=== PATIENT | male | born 1970 | race Caucasian/White ===

== ENCOUNTER → 2016-11-25 | Outpatient (CLI) | payer OTHER | LOC: GMAH 16:36 | PROVIDERS: ATTEND Family Medicine | DX: E03.9 Hypothyroidism, unspecified (principal) ==

== ENCOUNTER → 2018-05-05 | Outpatient (CLI) | payer OTHER | LOC: LAB.O 12:29 | PROVIDERS: ATTEND Family Medicine | DX: R10.84 Generalized abdominal pain (principal) ==

== ENCOUNTER → 2018-05-06 | Outpatient (CLI) | payer OTHER ==
--- NOTE | 2018-05-06 14:46 | CT ---
EXAM DESCRIPTION: Abdomen/Pelvis w/wo Contrast: Computed Tomography. CLINICAL HISTORY: LEFT LOWER QUAD PAIN COMPARISON: CT abdomen and pelvis without IV contrast 05/06/2018. TECHNIQUE: Spiral-axial scans at 5.0 mm intervals through the abdomen and pelvis before and after nonionic IV contrast. Water-soluble oral contrast prior to IV injection. Coronal and sagittal 2.0 mm reconstructions, before and after IV contrast. The scans after IV contrast were performed 2 hours after noncontrast scans. No adverse reactions. Total Exam DLP 2542.49 mGy - cm. This exam was performed according to our departmental CT dose-optimization program which includes automated exposure control, adjustment of the mA and/or kV according to patient size and/or use of iterative reconstruction technique; to reduce radiation dose to as low as reasonably achievable (ALARA). FINDINGS: Terminal Ileum/Cecum: Minimal mucosal thickening of the cecum and terminal ileum which contains oral contrast. Small appendix is noted normal thickness. No surrounding fatty stranding fluid or fascial thickening. Small lymph nodes with mean diameter less than 1 cm around the cecum and terminal ileum. Colon: Oral contrast shows varying degrees of mucosal thickening but no fatty stranding or fluid. More thickening noted in the distal transverse colon, splenic flexure, descending colon and rectosigmoid. Minimal fatty stranding abutting the descending colon and distal sigmoid. Diverticula noted but no inflammation. Proximal sigmoid is less involvement. Pelvic Organs: Wall thickening of the rectum, otherwise negative. Spine and Bony Pelvis: Spondylosis L5-S1 mild canal and bilateral foraminal narrowing. Also spondylosis lower thoracic spine. Stable. Abdominal Wall/Back Soft Tissues: Right fatty inguinal hernia not containing bowel. Stable. Lung bases and pleura: Negative. Liver, Stomach, Spleen, Adrenal Glands: Minimal gastric distention. Solid organs are negative. Pancreas, Gallbladder, Ducts: Gallbladder visualized. Other organs unremarkable. 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 Upper pole and upper renal segment radiodense stone 10 mm. No hydronephrosis however or lower segment. Customary morphology of the left kidney with 2 2 mm stones in the upper collecting system. Also a 3.5 mm radiodense stone in the upper collecting system with no hydronephrosis. Bilateral ureters with no dilation or radiodense stones. Mesentery: Minimal along the splenic flexure and descending colon. No free air or free fluid. Aorta: Minimal atherosclerotic calcification distally. Small Bowel: Contains oral contrast normal caliber and no thickening anteriorly terminal ileum. No obstruction or air-fluid levels. IMPRESSION: 1. Nonspecific scattered regions of mucosal/bowel wall thickening of the colon including the cecum, transverse colon, splenic flexure, descending colon and mid and distal sigmoid and rectum. Minimal density of the mesentery abutting the descending colon. Similar thickening of the terminal ileum. Diverticula in distal descending colon and sigmoid but no diverticulitis. Mesenteric lymph nodes around the cecum and terminal ileum. Some were present on the prior study. Appendix unremarkable. Consider gastroenterology consultation and colonoscopy. 2. Bilateral radiodense kidney stones with a 10 mm stone in the upper system of the right kidney which is partially duplicated. This stone has slightly enlarged since the prior study. Almost 4 mm stone upper collecting system left kidney. This stone has slightly enlarged since the prior study. No hydronephrosis. 3. Right side fatty inguinal hernia not containing bowel stable. Electronically signed by: Jonh Terry MD 05/06/2018 2:44 PM CDT
== END ==
LOC: CT 09:24
PROVIDERS: ATTEND Family Medicine
DX: K57.90 Diverticulosis of intestine, part unspecified, without perforation or abscess without bleeding (principal); N20.0 Calculus of kidney; K40.90 Unilateral inguinal hernia, without obstruction or gangrene, not specified as recurrent; R10.32 Left lower quadrant pain

== ENCOUNTER 2018-05-20 05:36 | Day surgery (SDC) | payer OTHER ==
[2018-05-20] MEDS ORDERED: LACTATED RINGERS 1,000 ML ONE (05:49)
[2018-05-20] MEDS ORDERED: LIDOCAINE 1% 10 ML VIAL INJ ONE (10:00)
[2018-05-20] MEDS ORDERED: PROPOFOL 200 MG/20 ML VIAL IV ONE (10:00)
--- NOTE | 2018-05-20 10:10 | OP ---
DATE OF PROCEDURE: 05/20/18 PREOPERATIVE DIAGNOSIS: 1. Abnormal CT of the colon. 2. Change in bowel habits. 3. Diarrhea. 4. Weight loss. 5. Bilateral lower quadrant pain. POSTOPERATIVE DIAGNOSIS: 1. Pancolitis. PROCEDURE: 1. Colonoscopy plus biopsy. SURGEON: Alex Stroud MD. COMPLICATIONS: None apparent. BLOOD LOSS: None. MEDICATIONS: Monitored anesthesia care. DESCRIPTION OF PROCEDURE: Informed consent was obtained prior to sedation. The preprocedure cardiopulmonary assessment was satisfactory. The patient was placed in the left lateral decubitus position and was sedated. A digital rectal exam was unremarkable. The tip of the Olympus colonoscope was inserted in the rectum and guided over to the cecum. The cecum was identified by locating the ileocecal valve and appendiceal orifice. The ileocecal valve as intubated and terminal ileum was inspected. The ileum is unremarkable. There is no evidence of ulceration, inflammation or other mucosal abnormality. The colon, however, is a different story. The patient has evidence of pancolitis. The colon mucosa is characterized by injection and edema, loss of normal vasculature because of the injection. There are shallow ulcers scattered throughout the colon. Some of these are linear and serpiginous and others are more rounded. [place] biopsies from each section of the colon were obtained. Probably the rectum was the least affected portion of the colon, however, it was not spared and there was inflammation in the rectum. There were a few diverticula in the left colon. The colon was otherwise unremarkable. RECOMMENDATIONS: Await biopsies. I suspect this represents inflammatory bowel disease, likely ulcerative colitis. He will likely need treatment. I will followup with him on the biopsies next week and we will proceed with treatment accordingly. #[id number] cc: Lacho Ho MD [facility]
[2018-05-20 10:55] VITALS: BP 128/72; TEMP 97.4; O2SAT 97
== END 2018-05-20 10:35 | disposition home or self-care (01) ==
LOC: AMB 05:36
PROVIDERS: ATTEND Internal Medicine Gastroenterology
DX: K51.00 Ulcerative (chronic) pancolitis without complications (principal); R19.7 Diarrhea, unspecified; I10 Essential (primary) hypertension; E03.9 Hypothyroidism, unspecified; K21.9 Gastro-esophageal reflux disease without esophagitis; R63.4 Abnormal weight loss; Z68.32 Body mass index [BMI] 32.0-32.9, adult; Z85.850 Personal history of malignant neoplasm of thyroid; Z79.899 Other long term (current) drug therapy

== ENCOUNTER → 2019-09-29 | Outpatient (CLI) | payer BC | LOC: GMAJ 07:00 | PROVIDERS: ATTEND Family Medicine | DX: E78.5 Hyperlipidemia, unspecified (principal) ==

== ENCOUNTER 2019-11-12 05:39 | Emergency (ER) | payer BC ==
[2019-11-12] MEDS ORDERED: KETOROLAC TROMETHAMINE INJ 30 MG/ML VIAL IV ONE ×2 (05:59→06:01)
--- NOTE | 2019-11-12 06:00 | ED.PDOC ---
History of Present Illness - History of Present Illness Initial Comments: 49 yo M PMH Thyroid Disease and Kidney Stones presents to ED c/o left sided flank pain radiating to LLQ that he attributes to kidney stones that began 3 hours ago. Denies fever chills vomiting diarrhea chest pain sob admits some nausea and no diaphoresis but 'some sweating' No change in diet symptoms disturb rest no change in bowel or bladder denies drinking or smoking admits FH HTN denies FH DM has PMD Dr. Gill for follow up. No other c/o today. <Jairo Graf - Last Filed: 11/12/19 06:58> <Ab Carvajal - Last Filed: 11/12/19 08:21> - General Chief Complaint: Problem Stated Complaint: left flank pain Time Seen by Provider: 11/12/19 05:56 - History of Present Illness Allergies/Adverse Reactions: Allergies NO KNOWN ALLERGY Allergy (Verified 11/12/19 05:52) Home Medications: Ambulatory Orders Levothyroxine Sodium [Synthroid] 0.05 mg PO ACBK 05/19/18 Lisinopril 10 mg PO QAM 05/19/18 Tamsulosin HCl [Flomax] 0.4 mg PO DAILY #7 cap 11/12/19 Tramadol HCl 50 mg PO Q8HR PRN #20 tab 11/12/19 levoFLOXacin [Levaquin] 500 mg PO DAILY #10 tab 11/12/19 Review of Systems - Review of Systems Constitutional: States: see HPI EENTM: States: see HPI Respiratory: States: see HPI Cardiology: States: see HPI Gastrointestinal/Abdominal: States: see HPI Genitourinary: States: see HPI Musculoskeletal: States: see HPI Skin: States: see HPI Neurological: States: see HPI Endocrine: States: see HPI Hematologic/Lymphatic: States: see HPI All other Systems: Reviewed and Negative <Jairo Graf - Last Filed: 11/12/19 06:58> Past Medical History (General) - Patient Medical History Hx Congestive Heart Failure: No Hx Hypertension: Yes Hx Thyroid Disease: Yes Hx Diabetes: No Hx MRSA: No Surgical History: other - Vaccination History Hx Influenza Vaccination: Yes - Social History Hx Tobacco Use: No Hx Alcohol Use: Yes - seldom <Jairo Graf - Last Filed: 11/12/19 06:58> Family Medical History - Family History Mother Hx Family Hypertension: Yes <Jairo Graf - Last Filed: 11/12/19 06:58> Physical Exam - Physical Exam General Appearance: Other - Uncomfortable Eye Exam: bilateral normal Ears, Nose, Throat: normal ENT inspection Neck: non-tender, full range of motion Respiratory: normal breath sounds Cardiovascular/Chest: regular rate, rhythm Gastrointestinal/Abdominal: soft, tenderness - LLQ tenderness Left flank/CVA tenderness Rectal Exam: deferred Back Exam: CVA tenderness (L) Extremity: normal range of motion, non-tender Neurologic: no motor/sensory deficits Skin Exam: normal color <Jairo Graf - Last Filed: 11/12/19 06:58> - Physical Exam Comments: Vital Signs - 24 hr 11/12/19 11/12/19 11/12/19 05:44 05:54 06:39 Temperature 96.7 F L Pulse Rate [ 52 L 54 L left] Respiratory 18 18 18 Rate Blood Pressure 127/92 114/96 [left] O2 Sat by Pulse 94 L 97 Oximetry 11/12/19 06:00 IV:Start .ONCE Laboratory Results - last 24 hr 11/12/19 11/12/19 11/12/19 05:45 05:45 07:00 WBC 17.7 H RBC 5.64 Hgb 15.9 Hct 47.8 MCV 84.7 MCH 28.3 MCHC 33.3 RDW 13.7 Plt Count 411 H MPV 6.9 L Absolute Neuts (auto) 15.30 H Absolute Lymphs (auto) 1.80 Absolute Monos (auto) 0.40 Absolute Eos (auto) 0.00 Absolute Basos (auto) 0.10 Neutrophils % 86.7 H Lymphocytes % 10.4 L Monocytes % 2.4 Eosinophils % 0.0 L Basophils % 0.5 Sodium 138 Potassium 4.0 Chloride 103 Carbon Dioxide 25 Anion Gap 14.0 BUN 19 H Creatinine 1.06 BUN/Creatinine Ratio 17.9 Random Glucose 157 H Serum Osmolality 281.2 Calcium 9.6 Total Bilirubin 0.8 AST 20 ALT 27 Alkaline Phosphatase 73 Serum Total Protein 7.5 Albumin 4.3 Globulin 3.2 Albumin/Globulin Ratio 1.3 Lipase 33 Urine Color Yellow Urine Appearance Clear Urine pH 5.0 Ur Specific [place]ow >= 1.030 Urine Protein Negative Urine Glucose (UA) Negative Urine Ketones Negative Urine Blood Moderate H Urine Nitrite Negative Urine Bilirubin Negative Urine Urobilinogen 0.2 Ur Leukocyte Esterase Negative Urine RBC 3-5 H Urine WBC 1-3 Ur Epithelial Cells 0-1 Amorphous Sediment 1+ Urine Bacteria Rare Urine Mucus Large two-view chest x-ray appears essentially benign. CT of abdomen and pelvis shows a 3 mm stone at the ureterovesicular junction. Minimal hydronephrosis. Additionally there is incidental finding of a few small 5 mm nodules in the right lower lung field. These appear to be more infectious versus inflammatory. <Ab Carvajal - Last Filed: 11/12/19 08:21> Progress - Progress Progress: 11/12/19 06:05 A/P-Abdominal Pain, Flank Pain-iv bolus cbc cmp lipase ua ct abdomen pelvis toradol zofran reassess 11/12/19 06:12 On reassessment patient is much more comfortable after toradol and pain is down to 2/10. 11/12/19 06:58 now at bedside, signed out to Dr. Carvajal <Jairo Graf - Last Filed: 11/12/19 06:58> - Progress Progress: 11/12/19 08:17 the patient presents secondary to a left-sided ureteral stone and pain related to it. He seems to be doing better at this point and at the time of the CT scan the stone was 3 mm and almost at the level of the bladder. He needs to keep himself well hydrated. He will be written for Flomax for one week. Motrin or Aleve can be used for discomfort as well. He will also be written for some tramadol. Additionally the patient does have some leukocytosis and some small 5 mm nodules in the right lower lung field. He is going to be placed on Levaquin for the next 10 days for a presumed infectious process. I would recommend repeating the CT scan of the chest in 4 weeks to make sure that these nodules have cleared. If not then further workup would be warranted. ER warnings were given for any worsening. ab carvajal [id number] <Ab Carvajal - Last Filed: 11/12/19 08:21> Departure <Jairo Graf - Last Filed: 11/12/19 06:58> - Departure Diet: regular diet Activity: increase activity as tolerated <Ab Carvajal - Last Filed: 11/12/19 08:21> - Departure Clinical Impression: Ureterolithiasis, Pulmonary nodule Disposition: Discharge to Home or Self Care Condition: Fair Departure Forms: ED Discharge - Pt. Copy, Patient Portal Self Enrollment Instructions: DI for Kidney Stones Referrals: Huang Baires MD [Primary Care Provider] - 1-2 Weeks Prescriptions: Tramadol HCl 50 mg PO Q8HR PRN #20 tab PRN Reason: Moderate Pain levoFLOXacin [Levaquin] 500 mg PO DAILY #10 tab Tamsulosin HCl [Flomax] 0.4 mg PO DAILY #7 cap Home Medications: Ambulatory Orders Levothyroxine Sodium [Synthroid] 0.05 mg PO ACBK 05/19/18 Lisinopril 10 mg PO QAM 05/19/18 Tamsulosin HCl [Flomax] 0.4 mg PO DAILY #7 cap 11/12/19 Tramadol HCl 50 mg PO Q8HR PRN #20 tab 11/12/19 levoFLOXacin [Levaquin] 500 mg PO DAILY #10 tab 11/12/19 Additional Instructions: the patient presents secondary to a left-sided ureteral stone and pain related to it. He seems to be doing better at this point and at the time of the CT scan the stone was 3 mm and almost at the level of the bladder. He needs to keep himself well hydrated. He will be written for Flomax for one week. Motrin or Aleve can be used for discomfort as well. He will also be written for some tramadol. Additionally the patient does have some leukocytosis and some small 5 mm nodules in the right lower lung field. He is going to be placed on Levaquin for the next 10 days for a presumed infectious process. I would recommend repeating the CT scan of the chest in 4 weeks to make sure that these nodules have cleared. If not then further workup would be warranted. ER warnings were given for any worsening.
[2019-11-12] MEDS ORDERED: ONDANSETRON INJ 4 MG/2 ML VIAL IV ONE (06:01)
[2019-11-12] MEDS ORDERED: SODIUM CHLORIDE 0.9% 1000ML 1,000 ML IVS ONE (06:07)
--- NOTE | 2019-11-12 07:37 | CT ---
EXAM DESCRIPTION: Abdoment/Pelvis w/o Contrast CLINICAL HISTORY: 49 years Male, abdominal pain flank pain COMPARISON: CT abdomen and pelvis 05/06/2018. TECHNIQUE: CT of the abdomen and pelvis acquired with IV contrast material. Coronal and sagittal reformations provided. This exam was performed according to our departmental dose-optimization program, which includes automated exposure control, adjustment of the mA and/or kV according to patient size and/or use of iterative reconstruction technique. FINDINGS: Lung bases: 2 mm pleural-based solid nodule in the right middle lobe. 5 mm stellate solid nodule in the posterior right lower lobe on image 8. Limited evaluation of the solid organs secondary to the lack of intravenous contrast. Solid Organs: Hypoattenuation of the liver. Unremarkable spleen, pancreas, gallbladder, and adrenal glands. Bilateral renal stones measuring up to 8 mm on the right and 2 mm the left. Partially duplicated collecting system on the right there is a 3 mm stone at the left uterovesical junction with very mild left hydronephroureter. GI tract: Stomach mildly distended gastric content. No small bowel obstruction. Scattered diverticula without pericolonic inflammation or fluid collection. Mild stool in the proximal colon. Normal appendix. Vascular: Mild atherosclerosis. Musculoskeletal and soft tissues: No acute fracture or aggressive appearing osseous lesion. Small bilateral inguinal hernias. Urinary bladder: Normal. Prostate: Normal. Other: None. IMPRESSION: 1. 3 mm stone left ureterovesicular junction with very mild left hydronephroureter. 2. Bilateral nodular second renal stones. 3. Fatty liver. 4. Diverticulosis. 5. Nodules in the right middle and right lower lobe measure up to 5 mm. These are probably infectious or inflammatory. Multiple pulmonary nodules. Most severe: 5.0 mm solid pulmonary nodule detected on incomplete chest CT. No routine follow-up imaging is recommended. These guidelines do not apply to immunocompromised patients and patients with cancer. Follow up in patients with significant comorbidities as clinically warranted. For lung cancer screening, adhere to Lung-RADS guidelines. Reference: Radiology. 2017; 284(1):228-43. Electronically signed by: Ed Beal MD 11/12/2019 7:36 AM [facility] [facility]
[2019-11-12] MEDS ORDERED: levoFLOXacin 500 MG TAB PO ONE (07:45)
[2019-11-12] MEDS ORDERED: TAMSULOSIN 0.4 MG CAP PO ONE (07:46)
--- NOTE | 2019-11-12 08:12 | RAD ---
EXAM DESCRIPTION: Chest,2 Views CLINICAL HISTORY: pulm nodules seen on ct of abd COMPARISON: Previous chest x-ray November 2012, CT abdomen and pelvis November 12, 2019 TECHNIQUE: PA/lateral FINDINGS: There is no acute appearing cardiac or pulmonary abnormality. Heart size is normal with normal pulmonary vascularity. No pleural effusion or pneumothorax. Lungs are clear with no consolidating infiltrate. Patient had a small nodule seen on chest CT performed earlier same day. The nodule was not visible on the chest x-ray. Lateral view shows intact sternum and T-spine. IMPRESSION: No acute process is identified in the chest. Electronically signed by: Pito Zuñiga MD 11/12/2019 8:11 AM [facility]
[2019-11-12] MEDS ORDERED: HYDROmorphone HCL INJ 2 MG/ML VIAL IV ONE (08:29)
[2019-11-12 08:44] VITALS: BP 143/98; TEMP 97.2; O2SAT 98
== END 2019-11-12 08:40 | disposition home or self-care (01) ==
LOC: ER 05:39
DX: N13.2 Hydronephrosis with renal and ureteral calculous obstruction (principal); R91.8 Other nonspecific abnormal finding of lung field; I10 Essential (primary) hypertension; E07.9 Disorder of thyroid, unspecified; Z79.899 Other long term (current) drug therapy
CPT/HCPCS: 71046; 74176; 80053; 81001; 83690; 85025; J1170; J1885; J2405; J7030

== ENCOUNTER → 2019-12-14 | Outpatient (CLI) | payer BC ==
--- NOTE | 2019-12-15 18:54 | CT ---
EXAM DESCRIPTION: Chest w/o Contrast : Computed Tomography. CLINICAL HISTORY: 49 years Male SOLITARY PULMONARY NODULE COMPARISON: CT scan of the abdomen and inferior chest November 12. TECHNIQUE: Spiral-axial scans at 5 x 5 mm intervals through the lungs and thorax without IV contrast. 2.5 x 5 mm lung algorithm axial reconstructions. Coronal and sagittal 2.0 Mm reconstructions. Total Exam DLP: 688.93 mGy-cm. This exam was performed according to our departmental dose-optimization program which includes automated exposure control, adjustment of the mA and/or kV according to patient size and/or use of iterative reconstruction technique; to reduce radiation dose to as low as reasonably achievable (ALARA). Nodule measurements under 10 mm are given as mean value of 3 axes diameters. FINDINGS: Lungs and large airways: 2 mm subpleural groundglass nodule in the left lower lobe abutting the inferior left major fissure. 3.5 mm solid nodule anterior right lower lobe on axial series 4, image 79. 5.4 mm solid nodule subpleural superior segment right lower lobe, on image 4/61. Margins are slightly more defined than on the prior study. 3 mm pleural versus subpleural nodule abutting the lateral right middle lobe on image 4/57. Bilateral pleural-parenchymal scarring. No new nodules and no masses. No focal infiltrates. Pleural spaces: Bilateral sporadic pleural thickening but no abnormal calcifications. Mediastinum and Alecia: Evaluation limited due to lack of IV contrast small lymph nodes no dominant soft tissue masses. Great vessels and Heart: Evaluation limited due to lack of IV contrast. Unremarkable. Soft tissues of neck base, axillae, and chest wall: Evaluation limited due to lack of IV contrast. Heterogenous right thyroid lobe partially low-density and larger than the left lobe. Upper abdomen: No change from the prior study. Osseous structures: Minimal spondylosis mid thoracic disc spaces. IMPRESSION: 1. Multiple nodules in the lungs. Largest nodule is solid with mean diameter 5.4 mm in the right lower lobe: Multiple pulmonary nodules. Most severe: 5.4 mm solid pulmonary nodule. No routine follow-up imaging is recommended if patient is low risk.. High-Risk patient may have optional CT chest scan at 12 month interval. These guidelines do not apply to immunocompromised patients and patients with cancer. Follow up in patients with significant comorbidities as clinically warranted. For lung cancer screening, adhere to Lung-RADS guidelines. Reference: Radiology. 2017; 284(1):228-43. 2. Inhomogeneous right lobe of the thyroid gland with indeterminate size nodule. Incidental thyroid nodule suspected, but size is indeterminate. If incidental thyroid nodule < 1.5 cm, no follow-up imaging is recommended; if >= 1.5 cm, recommend thyroid US. Reference: J Am Cachorro Radiol. 2015 Nov;12(2): 143-50 Electronically signed by: Jonh Terry MD 12/15/2019 6:53 PM [facility]
== END ==
LOC: CT 09:30
PROVIDERS: ATTEND Family Medicine
DX: R91.8 Other nonspecific abnormal finding of lung field (principal)

== ENCOUNTER → 2020-04-13 | Outpatient (CLI) | payer BC ==
--- NOTE | 2020-04-14 04:24 | RAD ---
EXAM DESCRIPTION: Knee,Left Complete CLINICAL HISTORY: OSTEOARTHRITIS OF KNEE COMPARISON: 17 July 2015 TECHNIQUE: 4 views left FINDINGS: Loss of medial joint space is observed. Medial femoral osteophyte formation is noted. Minimal lateral osteophyte formation is also noted. Degenerative changes are observed in the patellofemoral joint. A small joint effusion is evident. IMPRESSION: Tricompartmental joint arthritis is observed most pronounced in the medial joint compartment. There has been progression of disease since the previous exam. Electronically signed by: Magdi Castaneda MD 04/13/2020 5:33 PM CDT
--- NOTE | 2020-04-14 04:24 | RAD ---
EXAM DESCRIPTION: Pelvis CLINICAL HISTORY: HIP PAIN LEFT COMPARISON: CT the abdomen pelvis dated 12 November 2019 TECHNIQUE: AP pelvis FINDINGS: The bony pelvis and left hip. Intact. No fracturing is detected. No significant degenerative changes are observed. Phleboliths are observed in the pelvis. IMPRESSION: Normal pelvis Electronically signed by: Magdi Castaneda MD 04/13/2020 5:31 PM CDT
== END ==
LOC: RAD 10:52
PROVIDERS: ATTEND Orthopaedic Surgery
DX: M17.12 Unilateral primary osteoarthritis, left knee (principal); M25.559 Pain in unspecified hip

== ENCOUNTER → 2020-05-02 | Outpatient (CLI) | payer BC ==
--- NOTE | 2020-05-02 09:14 | RAD ---
EXAM DESCRIPTION: Chest,2 Views CLINICAL HISTORY: 50 years Male, ESSENTIAL HYPERTENSION COMPARISON: 11/12/2019. TECHNIQUE: PA and lateral radiographs of the chest were obtained. FINDINGS: Trachea is midline.The cardiomediastinal silhouette is normal in size. The pulmonary vasculature is within normal limits.The lungs are clear with no acute consolidation.No evidence of pleural effusions.No evidence of pneumothorax. IMPRESSION: No acute cardiopulmonary process. Electronically signed by: Bere Rosenberg MD 05/02/2020 9:12 AM CDT
== END ==
LOC: RAD 08:05
PROVIDERS: ATTEND Family Medicine
DX: Z01.818 Encounter for other preprocedural examination (principal); I10 Essential (primary) hypertension

== ENCOUNTER → 2020-05-17 | Day surgery (SDC) | payer BC | LOC: AMB 05:31 | PROVIDERS: ATTEND Orthopaedic Surgery | DX: M17.12 Unilateral primary osteoarthritis, left knee (principal); Z53.8 Procedure and treatment not carried out for other reasons ==

== ENCOUNTER 2020-05-31 05:46 | Inpatient (IN) | payer BC ==
[2020-05-31] MEDS ORDERED: SODIUM CHL 0.9% 100ML MINI-BAG 100 ML IVPB ONE (05:49)
[2020-05-31] MEDS ORDERED: VANCOMYCIN HCL INJ 1,000 MG VIAL IVPB ONE ×4 (05:50→06:46)
[2020-05-31] MEDS ORDERED: SODIUM CHLORIDE 0.9% 100ML 100 ML IVPB ONE (05:50)
[2020-05-31] MEDS ORDERED: TRANEXAMIC ACID 1,000 MG/10 ML VIAL ONE (05:50)
[2020-05-31] MEDS ORDERED: ceFAZolin SODIUM 1 GM VIAL ONE ×2 (05:50→06:18)
[2020-05-31] MEDS ORDERED: SODIUM CHLORIDE 0.9% 250ML 250 ML ONE (05:50)
[2020-05-31] MEDS ORDERED: BUPIVACAINE 0.5% 30 ML VIAL INJ ONE ×2 (06:18→06:46)
[2020-05-31] MEDS ORDERED: BUPIVACAINE LIPOSOME 13.3 MG/ML VIAL INJ ONE ×2 (06:18→06:46)
[2020-05-31] MEDS ORDERED: ACETAMINOPHEN IV 1000MG 100 ML ONE (06:24)
[2020-05-31] MEDS ORDERED: KETAMINE HCL 100 MG/ML VIAL ONE (06:24)
[2020-05-31] MEDS ORDERED: HYDROmorphone HCL INJ 2 MG/ML VIAL ONE (06:24)
[2020-05-31] MEDS ORDERED: MIDAZOLAM INJ 5 MG/5 ML VIAL ONE (06:24)
[2020-05-31] MEDS ORDERED: FAMOTIDINE 10 MG/ML ML IV ONE (06:25)
[2020-05-31] MEDS: LACTATED RINGERS 1,000 ML ONE ×2 (06:30→09:43)
[2020-05-31] MEDS ORDERED: TRANEXAMIC ACID 1,000 MG/10 ML VIAL IV ONE ×2 (06:30→06:31)
[2020-05-31] MEDS ORDERED: ceFAZolin SODIUM 1 GM VIAL IRRIG ONE (06:46)
[2020-05-31] MEDS ORDERED: EPINEPHrine HCL AMP 1 MG/ML AMP ONE (07:00)
[2020-05-31] MEDS ORDERED: DEXAMETHASONE INJ 10 MG/ML VIAL ONE (07:00)
[2020-05-31] MEDS ORDERED: PROPOFOL 200 MG/20 ML VIAL IV ONE (07:00)
[2020-05-31] MEDS ORDERED: MAGNESIUM SULFATE INJ 1 GM/2 ML VIAL ONE (07:00)
[2020-05-31] MEDS ORDERED: SODIUM CHLORIDE 0.9% 50 ML VIAL ONE (07:00)
[2020-05-31] MEDS ORDERED: BENZOCAINE-MENTH LOZ (CEPACOL) 1 EA LOZ MT PRN (09:27)
[2020-05-31] MEDS ORDERED: ZOLPIDEM TARTRATE 5 MG TAB PO PRN (09:27)
[2020-05-31] MEDS ORDERED: BISACODYL SUPPOSITORY 10 MG PR PRN (09:27)
[2020-05-31] MEDS ORDERED: SODIUM CHLORIDE 0.9% (FLUSH) 10 ML SYG IV PRN (09:27)
[2020-05-31] MEDS ORDERED: TEMAZEPAM 15 MG CAP PO PRN (09:27)
[2020-05-31] MEDS ORDERED: traMADol HCL 50 MG TAB PO PRN (09:27)
[2020-05-31] MEDS ORDERED: PROMETHAZINE HCL INJ 25 MG in SODIUM CHLORIDE 0.9% 50ML 50 ML IVPB PRN (09:27)
[2020-05-31] MEDS ORDERED: MORPHINE SULFATE INJ 10 MG/ML VIAL IV PRN (09:27)
[2020-05-31] MEDS ORDERED: DEX 5% W/NACL 0.45% 1000ML 1,000 ML IVS PRN (09:27)
[2020-05-31] MEDS ORDERED: MAGNESIUM HYDROXIDE 30 ML UD PO PRN (09:27)
[2020-05-31] MEDS ORDERED: HYDROcodone 5MG/APAP 325MG 1 EA TAB PO PRN (09:27)
[2020-05-31] MEDS ORDERED: ACETAMINOPHEN 325 MG TAB PO PRN (09:27)
[2020-05-31] MEDS ORDERED: TRANEXAMIC ACID INJ 1,000 MG in SODIUM CHLORIDE 0.9% 100ML 100 ML IVPB ONE (09:27)
[2020-05-31] MEDS ORDERED: ACETAMINOPHEN 500 MG TAB PO PRN (09:27)
[2020-05-31] MEDS ORDERED: MORPHINE SULFATE INJ 10 MG/ML VIAL IM PRN (09:27)
[2020-05-31] MEDS ORDERED: ALUMINUM & MAGNESIUM HYDROXIDE 30 ML UD PO PRN (09:27)
[2020-05-31] MEDS ORDERED: NALOXONE HCL INJ 0.4 MG/ML VIAL IV PRN (09:27)
[2020-05-31] MEDS ORDERED: MORPHINE PCA 1 MG/ML 100 ML BAG IVPB SCH (09:30)
[2020-05-31] MEDS ORDERED: IV SET AND CAP CHANGE INJ INJ SCH (09:30)
[2020-05-31] MEDS ORDERED: MORPHINE PCA 1 MG/ML 100 ML BAG IVPB ONE (09:34)
[2020-05-31] MEDS ORDERED: CADD ADMIN SET 1 EA PKG INJ ONE (09:48)
[2020-05-31] MEDS: PROMETHAZINE HCL INJ 12.5 MG in SODIUM CHLORIDE 0.9% 50ML 50 ML IVPB PRN (12:17)
[2020-05-31] MEDS: ONDANSETRON INJ 4 MG/2 ML VIAL IV PRN (13:59)
[2020-05-31] MEDS: ceFAZolin SODIUM 2 GM in SODIUM CHL 0.9% 50ML MIN-BAG+ 50 ML IVPB SCH ×2 (15:36→22:15)
[2020-05-31] MEDS: CELECOXIB 100 MG CAP PO SCH (17:56)
[2020-05-31] MEDS: VANCOMYCIN HCL INJ 1,000 MG in SODIUM CHLORIDE 0.9% 250ML 250 ML IVPB SCH (18:04)
[2020-05-31] MEDS ORDERED: DOCUSATE CALCIUM 240 MG CAP ONE (19:46)
[2020-05-31] MEDS ORDERED: ENOXAPARIN SODIUM 30 MG/0.3 ML SYG SUBCU ONE (19:47)
[2020-05-31] MEDS ORDERED: CYCLOBENZAPRINE HCL 10 MG TAB ONE (19:47)
[2020-05-31] MEDS: CYCLOBENZAPRINE HCL 10 MG TAB PO PRN (20:36)
[2020-05-31] MEDS: DOCUSATE CALCIUM 240 MG CAP PO SCH (20:36)
[2020-05-31] MEDS: ENOXAPARIN SODIUM 30 MG/0.3 ML SYG SUBCU SCH (22:53)
[2020-06-01] MEDS: ceFAZolin SODIUM 2 GM in SODIUM CHL 0.9% 50ML MIN-BAG+ 50 ML IVPB SCH (06:09)
[2020-06-01] MEDS: VANCOMYCIN HCL INJ 1,000 MG in SODIUM CHLORIDE 0.9% 250ML 250 ML IVPB SCH (06:10)
[2020-06-01] MEDS: HYDROcodone 10MG/APAP 325MG 1 EA TAB PO PRN ×2 (06:10→19:29)
[2020-06-01] MEDS ORDERED: LISINOPRIL 10 MG TAB ONE (07:17)
[2020-06-01] MEDS ORDERED: MAGNESIUM OXIDE 400 MG TAB ONE (07:17)
[2020-06-01] MEDS ORDERED: ENOXAPARIN SODIUM 30 MG/0.3 ML SYG SUBCU ONE (07:18)
[2020-06-01] MEDS: MAGNESIUM OXIDE 400 MG TAB PO SCH (08:12)
[2020-06-01] MEDS: CELECOXIB 100 MG CAP PO SCH ×2 (08:12→16:45)
--- NOTE | 2020-06-01 08:32 | CONS ---
SUPERVISING PHYSICIAN: Beatriz Pardo MD DATE OF CONSULTATION: 05/31/20 REASON FOR CONSULTATION: Status post left total knee arthroplasty. HISTORY OF PRESENT ILLNESS: Mr. Prieto is a 50-year-old male patient who has a longstanding history of left knee pain. He had multiple attempts at outpatient conservative treatment measures including injections and physical therapy, however, was unable to obtain any significant control of his pain. He has requested an elective left total knee arthroplasty to help control his symptoms. He was admitted for an elective left total knee arthroplasty today. He had no intraoperative complications. He is being seen in the postoperative state in stable condition. I was asked to see the patient in consultation for management of medical issues. PAST MEDICAL HISTORY: 1. Hypertension. 2. Hypothyroidism. 3. Hyperlipidemia. PAST SURGICAL HISTORY: None. HOME MEDICATIONS: 1. Lisinopril 10 mg daily. 2. Euthyrox 10 mcg daily. 3. Lovastatin 20 mg daily. 4. Zorvolex 35 mg daily. 5. Nexium 20 mg daily. ALLERGIES: NO KNOWN DRUG ALLERGIES. FAMILY HISTORY: Hypertension in both mother and father. 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 He is and has two children. He has never smoked. He drinks alcohol on very rare occasions. He does not use any illicit drugs. REVIEW OF SYSTEMS: CONSTITUTIONAL: Negative for any fevers, chills, general malaise or body aches. HEENT: Negative for headaches, sore throats, earaches, nasal congestion, vision changes. RESPIRATORY: Negative for coughing, wheezing or shortness of breath. CARDIOVASCULAR: Negative for chest pain, palpitations or syncopal episodes. GASTROINTESTINAL: Negative for nausea, vomiting, diarrhea, constipation or abdominal pain. GENITOURINARY: Negative for dysuria, hematuria, polyuria. MUSCULOSKELETAL: As noted in history of present illness. NEUROLOGIC: Negative for ataxia, seizures, vision changes, migraines or other focal deficits. HEMATOLOGIC: Negative for easy bruising, unexplained bleeding or transfusion reactions. PHYSICAL EXAMINATION: VITAL SIGNS: Temperature 98.2, pulse 102, blood pressure 152/77, respirations 16, oxygen saturation 99% on 2 liters nasal cannula. GENERAL: The patient is resting comfortably, does not appear in any acute distress. He is alert. HEENT: Tympanic membranes clear bilaterally. Oropharynx is pink, moist without any lesions. NECK: Supple, nontender with full range of motion. No jugular venous distention noted. RESPIRATORY: Lung sounds are clear to auscultation bilaterally without any rhonchi, wheezes or rales. CARDIOVASCULAR: Regular rate and rhythm without any appreciable murmurs, gallops, or rubs. ABDOMEN: Soft, nontender. Positive bowel sounds. EXTREMITIES: There is no edema. The left lower extremity has a large postsurgical dressing in place over the knee. Iceman is present. Distal pulses are strong. Capillary refill is brisk. NEUROLOGIC: Cranial nerves II-XII are grossly intact. The patient is alert and oriented times three. SKIN: Warm, pink and dry. LABORATORY: Postoperative hemoglobin and hematocrit pending. Urine drug screen negative. MICROBIOLOGY: No specimens. RADIOLOGY: No imaging to review. ASSESSMENT: 1. Immediate postoperative day 0 for left total knee arthroplasty performed by Dr. Feliberto Barcenas, orthopedic surgeon. 2. Hypertension on lisinopril. 3. Hypothyroidism on medication. PLAN: We will follow the patient postoperatively as needed as he begins his physical therapy rehabilitation efforts postoperatively. We will resume his home medications in the morning. We will defer orthopedic management to Dr. Barcenas and physical therapy. The plan at this point is to hopefully discharge either or Friday and begin his [facility]. Until the patient can transition to outpatient management, we will continue to monitor and treat as needed. #[id number] MTDD
[2020-06-01] MEDS: OMEPRAZOLE CAP 20 MG CAP PO SCH (08:42)
[2020-06-01] MEDS: LISINOPRIL 10 MG TAB PO SCH (08:42)
[2020-06-01] MEDS: LEVOTHYROXINE SODIUM 0.025 MG TAB PO SCH (08:43)
[2020-06-01] MEDS: PROMETHAZINE HCL INJ 12.5 MG in SODIUM CHLORIDE 0.9% 50ML 50 ML IVPB PRN (09:13)
[2020-06-01] MEDS: ENOXAPARIN SODIUM 30 MG/0.3 ML SYG SUBCU SCH ×2 (10:15→22:30)
--- NOTE | 2020-06-01 13:04 | OP ---
DATE OF PROCEDURE: 05/31/20 PREOPERATIVE DIAGNOSIS: 1. Knee arthritis. POSTOPERATIVE DIAGNOSIS: 1. Knee arthritis. PROCEDURE: 1. Total knee replacement. SURGEON: Feliberto Barcenas MD. PRODUCTION GRIP: Jonh Tanner CST, SA-C. ANESTHESIA: General anesthesia. COMPLICATIONS: None. FINDINGS: Severe osteoarthritis with varus deformity. INDICATION: Carrington has had a long history of ongoing knee pain secondary to arthritis as well as worsening deformity. Because of his limitations in daily activities, he has requested operative intervention. After discussing the risks, benefits and alternatives to operative therapy, the patient has given informed consent for total knee arthroplasty. PROCEDURE: The patient was brought to the Operating Room and placed in supine position. General anesthesia was induced and the patient's leg was sterilely prepped and draped. Following prepping and draping, the distal femur was exposed and using an intramedullary guide, the distal femoral cut was made. The appropriate sized cutting block was measured, pinned into place, and the anterior, posterior, and chamfer cuts were made. The ACL was transected and the tibia was subluxed. Both the medial and lateral menisci were removed. An intramedullary guide was used to make the proximal tibial cut. The appropriate sized base plate was placed and a trial polyethylene was placed. The trial femur was placed, the knee was reduced, and the knee was taken through a range of motion. The knee was stable in anterior, posterior, varus and valgus stress. The patella tracked anatomically without evidence of subluxation or dislocation. After trialing, the trial components were removed and the bony surfaces were thoroughly irrigated with saline. Following irrigation, the surfaces were dried and the final components were cemented into place. The excess cement was removed and the remaining cement was allowed to cure. The knee was again taken through a range of motion to confirm stability. The wound was then irrigated with saline and closure was performed using PDS to approximate the arthrotomy followed by closure of the subcutaneous tissues with a combination of running and interrupted Monocryl sutures. Sterile dressing was placed. The patient was awoken from anesthesia and taken to Recovery. COMPONENTS: [place] Triathlon knee, size 5 femur, size 5 tibia, 11 mm insert. POSTOPERATIVE PLAN: The patient will be weight-bearing as tolerated on postoperative day 1. #[id number] MTDD
[2020-06-01] MEDS: ONDANSETRON INJ 4 MG/2 ML VIAL IV PRN (13:15)
--- NOTE | 2020-06-01 14:57 | RAD ---
EXAM DESCRIPTION: Fluoroscopy Up to 1Hr: RF. CLINICAL HISTORY: 50 years Male TOTAL LEFT KNEE COMPARISON: None. IMPRESSION: Single AP frontal fluoroscopic image taken by the referring physician intraoperatively during TOTAL LEFT KNEE. No complicating process is demonstrated. Please refer to surgical report for specific details. Total fluoroscopic time was not recorded. Cumulative dose not recorded. Permanent images of this procedure are stored in the patient's medical record. Electronically signed by: Jonh Terry MD 06/01/2020 2:56 PM CDT
--- NOTE | 2020-06-01 14:59 | RAD ---
EXAM DESCRIPTION: Knee,Left 1 or 2 Views: CR/DR/XR. CLINICAL HISTORY: TKA COMPARISON: Intraoperative fluoroscopic images. TECHNIQUE/FINDINGS: 2 views left AP and crosstable lateral portable.. IMPRESSION: Left total knee arthroplasty. Knee alignment is in mild valgus. Bone abutting the components is unremarkable. Typical postsurgical soft tissue changes. No abnormal radiodense objects in the joint spaces or soft tissues. Electronically signed by: Jonh Terry MD 06/01/2020 2:57 PM CDT
[2020-06-01] MEDS ORDERED: SIMVASTATIN 20 MG TAB ONE (19:26)
--- NOTE | 2020-06-01 19:50 | PN ---
SUPERVISING PHYSICIAN: Artemio Pardo M.D. DATE: 06/01/20 SUBJECTIVE: The patient has had a little postoperative nausea. He does report that he has never had anesthesia and has no history, but otherwise has no other complaints. His pain has been under control. He is able to participate with his physical therapy. I did discuss plan of care as he progresses to discharge tomorrow to continue with outpatient management. OBJECTIVE: VITAL SIGNS: Temperature 97.8, pulse 81, blood pressure 129/74, respirations 16, satting 94% on room air. GENERAL: The patient is resting comfortably. He currently utilizes the CPM. Shows to be in no distress. He denies any nausea at that time. CHEST: Lung sounds are clear to auscultation. HEART: Regular rate and rhythm. ABDOMEN: Soft, non-tender. Positive bowel sounds. EXTREMITIES: Without any edema. The left knee has a large dressing in place with Edilberto bandage. Distally pulses are strong, capillary refill is brisk. NEUROLOGIC: He is alert and oriented times three. LABORATORY: postoperative H&H shows 13.8 and 39.8 respectively. ASSESSMENT: 1. Postoperative day 1 for elective total left knee arthroplasty performed by Dr. Feliberto Barcenas. 2. Postoperative nausea and vomiting, improving. 3. Hypertension on lisinopril, stable. 4. Hypothyroidism on chronic medications. PLAN: Will continue with his postoperative care and deferral of orthopedic management to Dr. Barcenas and Physical Therapy. He has been getting some Phenergan for his nausea. He is actually able to tolerate his diet and his nausea this morning was actually associated with his physical therapy. He is progressing well with his physical therapy and as long as he is able to tolerate oral intake and is doing well in the morning, he should discharge to continue with outpatient management with Physical [facility] after discharge. Until we can discharge him to outpatient management will continue to monitor and treat as needed. #[id number] MTDD
[2020-06-01] MEDS: CYCLOBENZAPRINE HCL 10 MG TAB PO PRN (20:24)
[2020-06-01] MEDS: DOCUSATE CALCIUM 240 MG CAP PO SCH (20:24)
[2020-06-01] MEDS ORDERED: SIMVASTATIN 10 MG TAB PO SCH (21:00)
[2020-06-02] MEDS: HYDROcodone 10MG/APAP 325MG 1 EA TAB PO PRN ×2 (00:25→08:00)
[2020-06-02] MEDS: CYCLOBENZAPRINE HCL 10 MG TAB PO PRN (05:59)
[2020-06-02] MEDS: OMEPRAZOLE CAP 20 MG CAP PO SCH (06:00)
[2020-06-02] MEDS: LEVOTHYROXINE SODIUM 0.025 MG TAB PO SCH (06:00)
[2020-06-02] MEDS: CELECOXIB 100 MG CAP PO SCH (07:58)
[2020-06-02] MEDS: MAGNESIUM OXIDE 400 MG TAB PO SCH (08:37)
[2020-06-02] MEDS: LISINOPRIL 10 MG TAB PO SCH (08:37)
[2020-06-02] MEDS ORDERED: SODIUM CHLORIDE 0.9% (FLUSH) 10 ML SYG IV SCH (09:00)
[2020-06-02] MEDS: ENOXAPARIN SODIUM 30 MG/0.3 ML SYG SUBCU SCH (09:50)
--- NOTE | 2020-06-02 10:04 | DS ---
SUPERVISING PHYSICIAN: Beatriz Pardo MD ADMISSION DIAGNOSIS: 1. Immediate postoperative day 0 for left total knee arthroplasty performed by Dr. Feliberto Barcenas, orthopedic surgeon. 2. Hypertension on lisinopril. 3. Hypothyroidism on medication. DISCHARGE DIAGNOSIS: 1. Postoperative day 2 for elective total left knee arthroplasty performed by Dr. Feliberto Barcenas. 2. Postoperative nausea and vomiting, resolved. 3. Hypertension on lisinopril, stable. 4. Hypothyroidism on chronic medications. REASON FOR HOSPITALIZATION: Mr. Prieto is a 50-year-old male patient who has a longstanding history of left knee pain. He had multiple attempts at outpatient conservative treatment measures including injections and physical therapy, however, was unable to obtain any significant control of his pain. He has requested an elective left total knee arthroplasty to help control his symptoms. He was admitted for an elective left total knee arthroplasty today. He had no intraoperative complications. He is being seen in the postoperative state in stable condition. I was asked to see the patient in consultation for management of medical issues. LABORATORY: Postoperative hemoglobin 13.8, hematocrit 39.8. RADIOLOGY: No radiographic studies available to review. PROCEDURES: Left total knee arthroplasty. Please see Dr. Barcenas's operative note for details. CONSULTATION: Medical services, please see that consultation report for details. HOSPITAL COURSE: Mr. Prieto was admitted on 05/31/20 for left total knee arthroplasty. He had no intraoperative complications. He had a few bouts of postoperative nausea, but this resolved prior to discharge. He did well with physical therapy to the extent that he was ready to discharge and continue outpatient [facility] for continued physical [facility] and rehabilitation. PLAN: Mr. Prieto is discharged on 06/02/20 to continue with his physical therapy efforts [facility]. He was to resume his usual diet. Wound care was as per Dr. Barcenas's postoperative instructions. Activities were as Dr. Barcenas's instructions and physical therapy, utilize a walker. MEDICATIONS PRESCRIBED ON DISCHARGE: 1. Zanaflex 4 mg at bedtime, #15, no refills. 2. Xarelto 10 mg daily for a total course of 12 days including hospitalization. 3. Pain management with [facility] is per Dr. Barcenas's prescription. CONDITION ON DISCHARGE: Stable and improved. DISPOSITION: The patient was discharged home. #[id number] [facility]
[2020-06-02 12:07] VITALS: BP 133/75; TEMP 98.1; O2SAT 95
[2020-06-03] MEDS ORDERED: BISACODYL SUPPOSITORY 10 MG PR ONE (21:00)
[2020-06-03] MEDS ORDERED: MAGNESIUM HYDROXIDE 30 ML UD PO ONE (21:00)
== END 2020-06-02 10:00 | disposition home or self-care (01) | DRG 470 ==
LOC: AMB 05:46 → MS 10:20
PROVIDERS: ADMIT Orthopaedic Surgery; ATTEND Nurse Practitioner Family
PROC: 0SRD0J9 Replacement of Left Knee Joint with Synthetic Substitute, Cemented, Open Approach (ICD-10-PCS; principal; 2020-05-31 07:00)
DX: M17.12 Unilateral primary osteoarthritis, left knee (principal); M21.162 Varus deformity, not elsewhere classified, left knee; I10 Essential (primary) hypertension; E03.9 Hypothyroidism, unspecified; R11.2 Nausea with vomiting, unspecified; E78.5 Hyperlipidemia, unspecified; Z82.49 Family history of ischemic heart disease and other diseases of the circulatory system